=== PATIENT | female | born 1990 | race Caucasian/White ===

== ENCOUNTER 2023-12-25 21:38 | Emergency (ER) | payer MEDICAID ==
[~2023-12-25] VITALS: Ht 160 cm; Wt 60.5 kg
[2023-12-25 22:05] VITALS: TEMP 97.4
[2023-12-25 22:35] LABS: BASOPHILS # (AUTO) 0.1 X10'3 (0-0.2); BASOPHILS % (AUTO) 0.9 % (0-1); EOSINOPHILS # (AUTO) 0.2 X10'3 (0-0.9); EOSINOPHILS % (AUTO) 1.5 % (0-6); HEMATOCRIT 37.8 % (35.0-45.0); HEMOGLOBIN 12.9 g/dl (12.0-16.0); LYMPHOCYTES # (AUTO) 3.2 X10'3 (1.1-4.8); LYMPHOCYTES % (AUTO) 30.6 % (21-51); MEAN CORPUSCULAR HEMOGLOBIN 29.9 PG (27.0-31.0); MEAN CORPUSCULAR HGB CONC 34.1 g/dL (33.0-36.5); MEAN CORPUSCULAR VOLUME 87.6 FL (78-98); MONOCYTES # (AUTO) 0.9 X10'3 (0-0.9); MONOCYTES % (AUTO) 8.5 % (2-12); NEUTROPHILS # (AUTO) 6.1 X10'3 (1.8-7.7); NEUTROPHILS % (AUTO) 58.5 % (42-75); PLATELET COUNT 359 X10'3 (140-440); RED BLOOD COUNT 4.32 X10'6 (4.20-5.60); RED CELL DISTRIBUTION WIDTH 13.7 % (11.5-14.5); WHITE BLOOD COUNT 10.5 X10'3 (4.5-11.0)
[2023-12-25 22:58] LABS: ALANINE AMINOTRANSFERASE 17 U/L (12-78); ALBUMIN 3.8 G/DL (3.4-5.0); ALBUMIN/GLOBULIN RATIO 1.2 (1.1-1.5); ALKALINE PHOSPHATASE 46 IU/L (46-116); ANION GAP 12 (8-16); ASPARTATE AMINO TRANSFERASE 15 U/L (10-37); BILIRUBIN,TOTAL 0.4 MG/DL (0.1-1.0); BLOOD UREA NITROGEN 10 MG/DL (7-18); BUN/CREATININE RATIO 13.5 (10.0-20.0); CALCIUM 8.8 MG/DL (8.5-10.1); CHLORIDE 102 MMOL/L (99-107); CREATININE 0.74 MG/DL (0.40-0.90); GLUCOSE 96 MG/DL (70-104); LIPASE 40 U/L (16-77); POTASSIUM 3.1 MMOL/L (3.5-5.1); SODIUM 139 MMOL/L (135-145); TOTAL CARBON DIOXIDE 24.7 MMOL/L (24-32); eCRCL 90 ML/MIN; eGFR > 90 ML/MIN
[2023-12-26 08:11] LABS: URINE HCG NEGATIVE (NEG)
[2023-12-26 08:22] LABS: BILIRUBIN,URINE NEGATIVE (Neg); CLARITY,URINE SLIGHTLY CLOUDY (Clear); COLOR,URINE YELLOW (Yellow); GLUCOSE, URINE NEGATIVE (Neg); KETONES,URINE NEGATIVE (Neg); LEUKOCYTE ESTERASE ,URINE NEGATIVE (Neg); NITRITES, URINE NEGATIVE (Neg); OCCULT BLOOD,URINE NEGATIVE (Neg); PROTEIN,URINE NEGATIVE (Neg); UROBILINOGEN,URINE 0.2 E.U/dL (0.2-1.0)
[2023-12-26 08:29] LABS: UA COLLECTION TYPE CLN CATCH MIDSTREAM
[2023-12-26 08:30] LABS: SQUAMOUS EPITHELIAL CELL,UR MANY /LPF (FEW)
[2023-12-26 08:32] LABS: BACTERIA,URINE FEW /HPF (Neg); RBC,URINE 0-2 /HPF (0-2); WBC,URINE 0-4 /HPF (0-4)
[2023-12-26] MEDS: normal saline 1000ML IV soln IVB ONE (09:15)
[2023-12-26] MEDS: morphine 2 MG/ML inj. syringe IV PRN (09:16)
[2023-12-26 09:24] LABS: MAGNESIUM 1.8 MG/DL (1.5-2.4)
[2023-12-26] MEDS ORDERED: PANT20TA2 PO (11:13)
[2023-12-26] MEDS ORDERED: ONDA4TAB12 PO (11:13)
[2023-12-26] MEDS: pantoprazole 40 MG vial IV ONE (11:54)
[2023-12-26] MEDS: ondansetron/PF 4mg/2ml inj IV ONE (11:54)
[2023-12-26 11:58] VITALS: BP 104/85; PULSE 78; RESP 16; O2SAT 98
== END 2023-12-26 11:59 | disposition home or self-care (01) ==
LOC: ER 21:39
DX: R10.11 Right upper quadrant pain (principal); Z91.013 Allergy to seafood; Z79.899 Other long term (current) drug therapy
CPT/HCPCS: 36415; 76700; 80053; 81001; 81025; 83690; 83735; 85025; 93005; 96361; 96374; 96375; 96376; 99285; C9113; J2270; J2405; J7030